=== PATIENT | female | born 1995 | race Caucasian/White ===

== ENCOUNTER 2019-05-29 14:49 | Inpatient (IN) ==
[2019-05-29 15:52] LABS: Basophils % 0.3 %; Eosinophils # 0.2 K/mcL (0.0-0.6); Eosinophils % 1.7 %; Hematocrit 40.8 % (35.3-44.9); Hemoglobin 13.4 g/dL (11.5-15.4); Immature Granulocytes % 0.8 % (0-4); Lymphocytes # 2.7 K/mcL (0.6-4.6); Lymphocytes % 20.7 %; Mean Corpuscular HGB Conc 32.8 g/dL (31.6-35.5); Mean Corpuscular Hemoglobin 28.2 pg (28.0-33.3); Mean Corpuscular Volume 85.7 fL (83.0-100.0); Mean Platelet Volume 10.5 fL (9.4-12.4); Monocytes % 7.3 %; Neutrophils # 9.2 K/mcL (1.6-8.9); Platelet Count 279 K/mcL (140-400); Red Blood Count 4.76 M/mcL (3.82-4.97); Segmented Neutrophils % 69.2 %; White Blood Count 13.2 K/mcL (4.3-11.1)
[2019-05-29 15:56] LABS: Bilirubin,Urine Negative (Negative); Blood,Urine Negative (Negative); Clarity,Urine Clear (Clear); Color,Urine Yellow (Yellow); Glucose,Urine (UA) Normal (Normal); Ketones,Urine Negative (Negative); Leukocyte Esterase,Urine Small (Negative); Nitrite,Urine Negative (Negative); PH,Urine 7.5 pH Units (5.0-8.0); Protein,Urine Negative (Neg-Trace); Specific Gravity,Urine 1.012 (1.010-1.025); Urobilinogen,Urine Normal (Normal)
[2019-05-29 15:57] LABS: Bacteria,Urine None Seen per hpf (None-Few); Hyaline Casts,Urine None Seen per lpf (None-Few); Squamous Epithelial Cell,Urine Many per lpf (None-Few)
[2019-05-29 16:03] LABS: Amphetamine Screen,Urine Negative ng/mL (Cutoff=1000); Barbiturate Screen,Urine Negative ng/mL (Cutoff=200); Benzodiazepines Screen,Urine Negative ng/mL (Cutoff=200); Cannabinoid Screen,Urine Negative ng/mL (Cutoff = 50); Cocaine Screen,Urine Negative ng/mL (Cutoff= 300); Opiate Screen,Urine Negative ng/mL (Cutoff=300); Phencyclidine Screen,Urine Negative ng/mL (Cutoff=25)
[2019-05-29 16:14] LABS: Acetaminophen < 10 mcg/mL (10-20); BUN/Creatinine Ratio 13 (6-26); Blood Urea Nitrogen 10 mg/dL (6-20); Calcium 9.4 mg/dL (8.6-10.3); Carbon Dioxide 25 mEq/L (23-29); Chloride 107 mEq/L (98-107); Ethanol < 10 mg/dL (Less than 10); Glucose 87 mg/dL (70-105); Osmolality,Calculated 286 (280-300); Potassium 3.7 mEq/L (3.5-5.1); Salicylate < 2.5 mg/dL (15.0-30.0); Sodium 139 mEq/L (136-145); eGFR For African Americans > 60 (> 60); eGFR For Non-African Americans > 60 (> 60)
[2019-05-29] MEDS ORDERED: Mag Hydrox/Al Hydrox/Simeth 30 ML UDC PO PRN (19:26)
[2019-05-29] MEDS ORDERED: Nicotine 2 MG GUM BC PRN (19:26)
[2019-05-29] MEDS ORDERED: Haloperidol Lactate 5 MG/ML VIAL IM PRN (19:26)
[2019-05-29] MEDS ORDERED: *HR* LORazepam 1 MG TABLET PO PRN (19:26)
[2019-05-29] MEDS ORDERED: *HR* LORazepam 2 MG/ML VIAL IM PRN (19:26)
[2019-05-29] MEDS ORDERED: MOM Conc 10 ML UD.LIQ PO PRN (19:26)
[2019-05-29] MEDS ORDERED: traZODone 50 MG TABLET PO PRN (19:28)
[2019-05-29] MEDS: traZODone 50 MG TABLET PO PRN (21:31)
[2019-05-29] MEDS: Gabapentin 300 MG CAPSULE PO SCH (21:32)
[2019-05-29] MEDS: Acetaminophen 325 MG TABLET PO PRN (21:32)
[2019-05-30] MEDS ORDERED: lamoTRIgine 100 MG TABLET PO SCH (09:00)
[2019-05-30] MEDS: Gabapentin 300 MG CAPSULE PO SCH ×3 (09:03→20:37)
[2019-05-30] MEDS: FLUoxetine 20 MG CAPSULE PO SCH (09:03)
[2019-05-30] MEDS: ARIPiprazole 10 MG TABLET PO SCH (09:04)
[2019-05-30] MEDS: BuPROPion XL (24 HR) 150 MG TABLET PO SCH (11:28)
[2019-05-30] MEDS: traZODone 50 MG TABLET PO PRN (20:37)
[2019-05-30] MEDS: hydrOXYzine pamoate 25 MG CAPSULE PO PRN (20:37)
[2019-05-31] MEDS: Acetaminophen 325 MG TABLET PO PRN (02:04)
[2019-05-31] MEDS: Gabapentin 300 MG CAPSULE PO SCH ×3 (08:33→21:23)
[2019-05-31] MEDS: FLUoxetine 20 MG CAPSULE PO SCH (08:33)
[2019-05-31] MEDS: BuPROPion XL (24 HR) 150 MG TABLET PO SCH (08:33)
[2019-05-31] MEDS: ARIPiprazole 10 MG TABLET PO SCH (08:34)
[2019-05-31] MEDS: hydrOXYzine pamoate 25 MG CAPSULE PO PRN (21:23)
[2019-05-31] MEDS: traZODone 50 MG TABLET PO PRN (21:23)
[2019-06-01 08:44] VITALS: BP 123/84
[2019-06-01] MEDS: BuPROPion XL (24 HR) 150 MG TABLET PO SCH (08:55)
[2019-06-01] MEDS: Gabapentin 300 MG CAPSULE PO SCH (08:55)
[2019-06-01] MEDS: FLUoxetine 20 MG CAPSULE PO SCH (08:55)
[2019-06-01] MEDS: ARIPiprazole 10 MG TABLET PO SCH (08:55)
== END 2019-06-01 11:45 | disposition home or self-care (01) | DRG 885 ==
LOC: EMEROOARM 14:49 → SUATTDRO 18:52 → 1ANU 18:52
PROVIDERS: ADMIT Psychiatry & Neurology Psychiatry; ATTEND Psychiatry & Neurology Psychiatry

== ENCOUNTER 2020-06-19 00:02 | Observation (INO) ==
[2020-06-19 00:30] LABS: Basophils # 0.1 K/mcL (0.0-0.2); Basophils % 0.5 %; Eosinophils # 0.4 K/mcL (0.0-0.6); Eosinophils % 2.6 %; Hematocrit 40.9 % (35.3-44.9); Hemoglobin 13.1 g/dL (11.5-15.4); Immature Granulocytes % 0.5 % (0-4); Lymphocytes # 3.7 K/mcL (0.6-4.6); Lymphocytes % 24.4 %; Mean Corpuscular Hemoglobin 27.5 pg (28.0-33.3); Mean Corpuscular Volume 85.7 fL (83.0-100.0); Mean Platelet Volume 10.9 fL (9.4-12.4); Monocytes % 6.7 %; Neutrophils # 9.9 K/mcL (1.6-8.9); Platelet Count 311 K/mcL (140-400); Red Blood Count 4.77 M/mcL (3.82-4.97); Red Cell Distribution Width 14.3 % (11.5-14.5); Segmented Neutrophils % 65.3 %; White Blood Count 15.1 K/mcL (4.3-11.1)
[2020-06-19 00:48] LABS: BUN/Creatinine Ratio 14 (6-26); Blood Urea Nitrogen 13 mg/dL (6-20); Calcium 8.8 mg/dL (8.6-10.3); Carbon Dioxide 25 mEq/L (23-29); Chloride 106 mEq/L (98-107); Glucose 95 mg/dL (70-105); Osmolality,Calculated 290 (280-300); Potassium 3.7 mEq/L (3.5-5.1); Sodium 140 mEq/L (136-145); eGFR For African Americans > 60 (> 60); eGFR For Non-African Americans > 60 (> 60)
[2020-06-19 00:49] LABS: Troponin I < 0.03 ng/mL (< 0.04)
[2020-06-19 01:16] LABS: Bilirubin,Urine Negative (Negative); Blood,Urine Negative (Negative); Clarity,Urine Clear (Clear); Color,Urine Light-Yellow (Yellow); Glucose,Urine (UA) Normal (Normal); Ketones,Urine Negative (Negative); Leukocyte Esterase,Urine Trace (Negative); Nitrite,Urine Negative (Negative); PH,Urine 5.5 pH Units (5.0-8.0); Protein,Urine Trace mg/dL (Neg-Trace); RBC,Urine 0-3 per hpf (0-3); Specific Gravity,Urine 1.029 (1.010-1.025); Squamous Epithelial Cell,Urine Moderate per hpf (None-Few); Urobilinogen,Urine Normal (Normal); WBC,Urine 0-3 per hpf (0-3)
[2020-06-19] MEDS ORDERED: 0.9 % Sodium Chloride 1,000 ML IVC ONE (04:13)
[2020-06-19] MEDS ORDERED: *HR* OxyCODONE Immed Rel 5 MG TABLET PO ONE (05:30)
[2020-06-19] MEDS ORDERED: Aspirin 81 MG TAB.CHEW PO ONE (06:55)
[2020-06-19] MEDS ORDERED: Perflutren Lipid Microsphere 1.3 ML in 0.9 % Sodium Chloride 8.7 ML IVP PRN (07:51)
[2020-06-19] MEDS ORDERED: Naloxone 0.4 MG/ML INJ IVP PRN (07:53)
[2020-06-19] MEDS ORDERED: Ondansetron 4 MG/2 ML VIAL IVP PRN (07:53)
[2020-06-19] MEDS ORDERED: Ringers Solution, Lactated 1,000 ML IVC SCH (08:00)
[2020-06-19] MEDS ORDERED: Nicotine 14 MG PATCH.TD24 TD SCH (09:00)
[2020-06-19 09:48] LABS: Magnesium 1.9 mg/dL (1.6-2.6); Phosphorous 3.1 mg/dL (2.7-4.5)
[2020-06-19 10:04] LABS: Thyroid Stimulating Hormone 3.891 mcIU/mL (0.340-5.600)
[2020-06-19 10:14] LABS: Folate 18.8 ng/mL (3.0-16.0)
[2020-06-19 14:50] VITALS: BP 121/85
[2020-06-20] MEDS ORDERED: Aspirin 81 MG TAB.CHEW PO SCH (09:00)
== END 2020-06-19 16:33 | disposition home or self-care (01) ==
LOC: 3BNU 00:02 → EMEROOARM 00:02 → 3BNU 08:45
PROVIDERS: ADMIT Family Medicine; ATTEND Family Medicine